=== PATIENT | male | born 1935 | race Caucasian/White ===

== ENCOUNTER 2017-01-03 20:42 | Observation (INO) | payer OTHER ==
[~2017-01-03] VITALS: Ht 175.3 cm; Wt 83.2 kg
--- NOTE | 2017-01-03 22:54 | DIAGNOSTIC IMAGING REPORT ---
PROCEDURE: CT ABD/PELVIS WITH CONTRAST INDICATION: Left lower quadrant abdominal pain. TECHNIQUE: 125 ml of Isovue 300 were injected intravenously and axial images were obtained of the entire abdomen and pelvis with sagittal and coronal reformations. COMPARISON: None. FINDINGS: ABDOMEN: There is mild increased fluid throughout the colon and distal small bowel. There is rotation of the mesentery in the left lower abdomen which might be a reflection of an internal hernia, although there is no evidence of bowel obstruction. There are internal septations of the gallbladder. Liver, spleen, pancreas, kidneys (bilateral simple cysts), are normal. There are marked calcified atheromatous changes aorta and iliac vessels. There are moderate to marked degenerate change of the lumbar spine. PELVIS: There is mild enlargement prostate (4.8 cm) with central dystrophic calcifications. IMPRESSION: 1. Mild increased fluid throughout the colon. Consider ingested material or enterocolitis. 2. Rotation of the small bowel mesentery in the left lower abdomen. While this may be normal, one might consider the possibility of internal hernia (although there is no evidence of obstruction). 3. There are septations in the neck of the gallbladder (versus gallstones). Ultrasound gallbladder is recommended to further evaluate (after the patient's acute illness). 4. Marked calcified atheromatous changes of the aorta and iliac vessels. No evidence of aneurysm. 5. Mild enlargement prostate. 6. Findings discussed with Dr. Polanco. All CT scans at this facility use dose modulation, iterative reconstruction, and/or weight-based dosing when appropriate to reduce radiation dose to as low as reasonably achievable.
--- NOTE | 2017-01-03 23:34 | ED CLINICAL REPORT ---
Clinical Report - Physicians/Mid Levels [facility] [address] [place] [address] 01/03/2017 20:44 Patient: MURIEL IVAN Time Seen: 21:01. Arrived- By private vehicle. Historian- patient and family. HISTORY OF PRESENT ILLNESS Chief Complaint: ABDOMINAL PAIN. At its maximum, severity described as moderate. When seen in the E.D., severity described as moderate. Modifying factors- worsened by movement. Relieved by rest. It is described as "pain". No radiation. It is described as located in the left lower quadrant and left pelvis. This started today about 02:00 AM and is still present. It was gradual in onset and has been waxing/waning. No vomiting. He has had diarrhea (had some loose stools - using stool softener and ?Mag citrate). Similar symptoms previously: Recent medical care: Not recently seen/assessed. REVIEW OF SYSTEMS The patient has had constipation (intermittently). No black stools, hematemesis, difficulty with urination, pain with urination or urinary frequency. No bloody stools, fever, headache, sore throat or difficulty breathing. No cough or back pain. Denies current . All systems otherwise negative, except as recorded above. PAST HISTORY See nurses notes. PROBLEMS: Bladder CA. Diabetes Mellitus. Renal Lithiasis. Coronary Artery Disease SURGERIES: Bladder. CABG. SOCIAL HISTORY No alcohol use or drug use. ADDITIONAL NOTES The nursing notes have been reviewed. PHYSICAL EXAM Vital Signs: 01/03/2017 21:01 BP: 165/77. HR: 64. RR: 16. O2 saturation: 97%. Temp: 97.7 F. Pain level now: 8/10. Appearance: Alert. Oriented X3. Patient in mild distress. Eyes: No scleral icterus or pale conjunctivae. ENT: Pharynx normal. No pharyngeal erythema or tonsillar exudate. The mucous membranes are not dry. Neck: Normal inspection. Neck supple. CVS: Normal heart rate and rhythm. Pulses normal. Respiratory: No respiratory distress. Breath sounds normal. Chest nontender. Abdomen: Soft. Moderate tenderness in the left lower quadrant. No rebound tenderness or guarding. Back: Normal inspection. Skin: Skin warm and dry. Normal skin color. Normal skin turgor. Extremities: Extremities exhibit normal ROM. Neuro: Oriented X 3. No motor deficit. LABS, X-RAYS, AND EKG Abdominal CT: IMPRESSION: 1. Mild increased fluid throughout the colon. Consider ingested material or enterocolitis. 2. Rotation of the small bowel mesentery in the left lower abdomen. While this may be normal, one might consider the possibility of internal hernia (although there is no evidence of obstruction). 3. There are septations in the neck of the gallbladder (versus gallstones). Ultrasound gallbladder is recommended to further evaluate (after the patient's acute illness). 4. Marked calcified atheromatous changes of the aorta and iliac vessels. No evidence of aneurysm. 5. Mild enlargement prostate. Study type: abdomen and pelvis. Abdominal CT performed with IV contrast. The study was independently viewed by me, interpreted by the radiologist and discussed with the radiologist. Laboratory Tests: UA-Culture if indicated: (MARIO: 01/03/2017 21:00) ( [facility] 01/03/2017 21:34) Final results Test Result Flag Units (Reference) URINE COLOR YELLOW URINE APPEARANCE CLEAR URINE GLUCOSE NEGATIVE (NEGATIVE) URINE BILIRUBIN NEGATIVE (NEGATIVE) URINE KETONE NEGATIVE (NEGATIVE) URINE SPECIFIC GRAVITY <= 1.005 L (1.010-1.030) URINE PH 7.0 (5.0-8.0) URINE PROTEIN NEGATIVE (NEGATIVE) URINE UROBILINOGEN 0.2 EU/dL (0.2-1.0) URINE NITRITE NEGATIVE (NEGATIVE) URINE BLOOD TRACE-INTACT (NEGATIVE) URINE LEUK ESTERASE TRACE (NEGATIVE) URINE RBC 0-1 rbc/hpf (0-1) URINE WBC 3-5 wbc/hpf (0-1) URINE EPITHELIAL CELLS NONE SEEN EPI/hpf (0-5) URINE BACTERIA NONE SEEN (NONE SEEN) URINE COMMENT CULTURE INDICATED URINE CULTURES ARE SET-UP BASED ON THE FOLLOWING CRITERIA:POSITIVE NITRITEPOSITIVE LEUKOCYTE ESTERASEGREATER THAN 10 WHITE BLOOD CELLSMODERATE (2+) OR GREATER BACTERIA CBC w Diff: (MARIO: 01/03/2017 21:30) ( [facility] [place] 21:45) Final results Test Result Flag Units (Reference) WHITE BLOOD COUNT 8.2 K/uL (4.5-11.5) RED BLOOD COUNT 4.60 M/uL (4.50-5.90) HEMOGLOBIN 13.4 L gm/dL (13.5-17.5) HEMATOCRIT 39.8 L % (41.0-53.0) MEAN CELL VOLUME 86 fL (80-100) MEAN CORPUSCULAR HGB 29 pg (26-34) MEAN CORPUSCULAR HGB CONC 34 g/dL (31-37) RED CELL DISTRIBUTION WIDTH 13.5 % (11.6-14.8) PLATELET COUNT 176 K/uL (150-400) NEUTROPHIL % 62.6 % (50-75) LYMPH % 19.9 L % (25-40) MONO % 11.6 % (3-14) EOSINOPHIL % 4.8 H % (0-4) BASOPHIL % 1.1 % (0-2) PT with INR: (MARIO: 01/03/2017 21:30) ( [facility] 01/03/2017 22:08) Final results Test Result Flag Units (Reference) INR 0.9 (0.8-1.2) Low Intensity Therapy: INR 1.5-2.0 PT range 18.5-23.1Mod.Intensity Therapy: INR 2.0-3.0 PT range 23.1-31.5High Intensity Therapy: INR 2.5-3.5 PT range 27.4-35.5High Intensity Therapy 2: INR 3.0-4.0 PT range 31.5-39.3 Lactate, Serum: (MARIO: 01/03/2017 21:40) ( [facility] 01/03/2017 22:21) Final results Test Result Flag Units (Reference) LACTIC ACID 0.8 mmol/L (0.4-2.0) CMP: (MARIO: 01/03/2017 21:30) ( [facility] 01/03/2017 22:02) Final results Test Result Flag Units (Reference) GLUCOSE 103 mg/dL (70-110) BUN 20 H mg/dL (7-18) CREATININE 1.2 mg/dL (0.6-1.3) Estimated GFR >60 mL/min Estimated GFR- >60 mL/min Note: Persistent reduction over 3 months in eGFR<60 mL/min/1.73 m2 defines CKD. Patients with eGFR values>=60 mL/min/1.73 m2 may also have CKD if evidence ofpersistent proteinuria. Additional information may be foundat www.kidney.org. SODIUM 135 L mmol/L (136-145) POTASSIUM 3.5 mmol/L (3.5-5.1) CHLORIDE 98 mmol/L (98-107) CARBON DIOXIDE 25 mmol/L (21-32) CALCIUM 8.4 L mg/dL (8.5-10.1) TOTAL PROTEIN 7.1 g/dL (6.4-8.2) ALBUMIN 3.9 g/dL (3.3-5.0) BILIRUBIN, TOTAL 0.8 mg/dL (0.0-1.0) ALKALINE PHOSPHATASE 76 U/L (46-116) AST (SGOT) 21 U/L (15-37) ALT (SGPT) 24 U/L (12-78) LIPASE 145 U/L (73-393) AMYLASE 44 U/L (25-115) . Pulse Oximetry: 01/03/2017 21:01 O2 saturation: 97%. (FIO2 - room air). Interpretation: normal. PROGRESS AND PROCEDURES Course of Care: Normal Saline 1 liter IVPB given. Bactrim DS 2 tabs PO. Zofran 4 mg IVP given. Dilaudid 0.5 mg IVP given. Flagyl 500mg IVPB given. Patient is stable. Physical exam findings are improved. Symptoms better. CT concerning for ?internal hernia. Pt will be observed and surgery consulted (Dr Mcgill requests hospitalist admit with surgery consult). Discussed case with on-call health care provider, (Artem call placed 23:00). Reviewed test results. Agreed upon treatment plan. Discussed case with health care provider (Paula call placed 23:24). Health care provider will see patient in ED. Patient/family counseled. Transition orders written. Disposition: Discharged. Condition: stable and improved. CLINICAL IMPRESSION Acute left lower quadrant abdominal pain of unknown cause (consider internal hernia). Acute urinary tract infection with cystitis. (Electronically signed by Michael Polanco DO 01/04/2017 7:23)
--- NOTE | 2017-01-03 23:34 | ED ORDER SUMMARY ---
..... Patient: MURIEL IVAN OrderSheet [facility] VisitID: [id number] [address] [place] [address] 81y, M Registration Date/Time: 01/03/2017 ORDER SHEET Weight: 83.9 kg (stated) Allergies: Some oral Antibiotic (?) GENERAL ORDERS: CT Abd/Pel w Cont (No) (N/A) (LLQ tenderness) Urgent (21:05 01/03/2017 PHutchinson DO) (Ack 21:13 SRedmond) (23:29 Luis Enrique) CBC w Diff Urgent (21:06 01/03/2017 PHutchinson DO) (Ack 21:13 SRedmond) (21:33 JRomanelli R.N.) CMP Urgent (21:01/03/2017 PHutchinson DO) (Ack 21:13 SRedmond) (21:33 JRomanelli R.N.) UA-Culture if indicated Urgent (21:06 01/03/2017 PHutchinson DO) (Ack 21:13 SRedmond) (21:20 JRomanelli R.N.) Amylase Urgent (21:06 01/03/2017 PHutchinson DO) (Ack 21:13 SRedmond) (21:33 JRomanelli R.N.) Lipase Urgent (21:06 01/03/2017 PHutchinson DO) (Ack 21:13 SRedmond) (21:33 JRomanelli R.N.) PT with INR Urgent (21:06 01/03/2017 PHutchinson DO) (Ack 21:13 SRedmond) (21:33 JRomanelli R.N.) Lactate, Serum Urgent (21:06 01/03/2017 PHvachinson DO) (Ack 21:13 SRedmond) (22:07 JRomanelli R.N.) Call (Place call to): (Dr Lora) (22:53 01/03/2017 [facility]) (Ack 22:55 SRedmond) (23:00 SRedmond) MEDICATION ORDERS: Bactrim DS PO (Tablet 800-160 mg) 2 tabs (NOW) (21:53 01/03/2017 PHutchinson DO) (22:08 Stephanie R.N.) IV FLUIDS: IV NS : initial bolus 500 mL (1000 mL/hr), then 250 mL/hr for X2 (NOW) (21:06 01/03/2017 [facility] ) (21:54 Stephanie R.N.) Dilaudid IV 0.5 mg (HIGH ALERT MEDICATION, NOW) (21:06 01/03/2017 [facility]) (22:10 Stephanie R.N.) Zofran IV 4 mg (NOW) (21:06 01/03/2017 [facility]) (22:08 Stephanie R.N.) Flagyl IV 500 mg/100mL (NOW) (21:53 01/03/2017 [facility]) (22:09 Stephanie R.N.) ORDER SHEET NOTES: [Electronically signed by Filiberto Orozco R.N. (02:58 01/04/2017)] [Electronically signed by Michael Polanco DO (07:23 01/04/2017)] [Electronically locked/signed by Filiberto Orozco R.N. (02:58 01/04/2017)]
--- NOTE | 2017-01-03 23:34 | ED CLINICAL REPORT ---
Clinical Report - Physicians/Mid Levels [facility] [address] [place] [address] 01/03/2017 20:44 Patient: MURIEL IVAN Time Seen: 21:01. Arrived- By private vehicle. Historian- patient and family. HISTORY OF PRESENT ILLNESS Chief Complaint: ABDOMINAL PAIN. At its maximum, severity described as moderate. When seen in the E.D., severity described as moderate. Modifying factors- worsened by movement. Relieved by rest. It is described as "pain". No radiation. It is described as located in the left lower quadrant and left pelvis. This started today about 02:00 AM and is still present. It was gradual in onset and has been waxing/waning. No vomiting. He has had diarrhea (had some loose stools - using stool softener and ?Mag citrate). Similar symptoms previously: Recent medical care: Not recently seen/assessed. REVIEW OF SYSTEMS The patient has had constipation (intermittently). No black stools, hematemesis, difficulty with urination, pain with urination or urinary frequency. No bloody stools, fever, headache, sore throat or difficulty breathing. No cough or back pain. Denies current . All systems otherwise negative, except as recorded above. PAST HISTORY See nurses notes. PROBLEMS: Bladder CA. Diabetes Mellitus. Renal Lithiasis. Coronary Artery Disease SURGERIES: Bladder. CABG. SOCIAL HISTORY No alcohol use or drug use. ADDITIONAL NOTES The nursing notes have been reviewed. PHYSICAL EXAM Vital Signs: 01/03/2017 21:01 BP: 165/77. HR: 64. RR: 16. O2 saturation: 97%. Temp: 97.7 F. Pain level now: 8/10. Appearance: Alert. Oriented X3. Patient in mild distress. Eyes: No scleral icterus or pale conjunctivae. ENT: Pharynx normal. No pharyngeal erythema or tonsillar exudate. The mucous membranes are not dry. Neck: Normal inspection. Neck supple. CVS: Normal heart rate and rhythm. Pulses normal. Respiratory: No respiratory distress. Breath sounds normal. Chest nontender. Abdomen: Soft. Moderate tenderness in the left lower quadrant. No rebound tenderness or guarding. Back: Normal inspection. Skin: Skin warm and dry. Normal skin color. Normal skin turgor. Extremities: Extremities exhibit normal ROM. Neuro: Oriented X 3. No motor deficit. LABS, X-RAYS, AND EKG Abdominal CT: IMPRESSION: 1. Mild increased fluid throughout the colon. Consider ingested material or enterocolitis. 2. Rotation of the small bowel mesentery in the left lower abdomen. While this may be normal, one might consider the possibility of internal hernia (although there is no evidence of obstruction). 3. There are septations in the neck of the gallbladder (versus gallstones). Ultrasound gallbladder is recommended to further evaluate (after the patient's acute illness). 4. Marked calcified atheromatous changes of the aorta and iliac vessels. No evidence of aneurysm. 5. Mild enlargement prostate. Study type: abdomen and pelvis. Abdominal CT performed with IV contrast. The study was independently viewed by me, interpreted by the radiologist and discussed with the radiologist. Laboratory Tests: UA-Culture if indicated: (MARIO: 01/03/2017 21:00) ( [facility] [place] 21:34) Final results Test Result Flag Units (Reference) URINE COLOR YELLOW URINE APPEARANCE CLEAR URINE GLUCOSE NEGATIVE (NEGATIVE) URINE BILIRUBIN NEGATIVE (NEGATIVE) URINE KETONE NEGATIVE (NEGATIVE) URINE SPECIFIC GRAVITY <= 1.005 L (1.010-1.030) URINE PH 7.0 (5.0-8.0) URINE PROTEIN NEGATIVE (NEGATIVE) URINE UROBILINOGEN 0.2 EU/dL (0.2-1.0) URINE NITRITE NEGATIVE (NEGATIVE) URINE BLOOD TRACE-INTACT (NEGATIVE) URINE LEUK ESTERASE TRACE (NEGATIVE) URINE RBC 0-1 rbc/hpf (0-1) URINE WBC 3-5 wbc/hpf (0-1) URINE EPITHELIAL CELLS NONE SEEN EPI/hpf (0-5) URINE BACTERIA NONE SEEN (NONE SEEN) URINE COMMENT CULTURE INDICATED URINE CULTURES ARE SET-UP BASED ON THE FOLLOWING CRITERIA:POSITIVE NITRITEPOSITIVE LEUKOCYTE ESTERASEGREATER THAN 10 WHITE BLOOD CELLSMODERATE (2+) OR GREATER BACTERIA CBC w Diff: (MARIO: 01/03/2017 21:30) ( [facility] [place] 21:45) Final results Test Result Flag Units (Reference) WHITE BLOOD COUNT 8.2 K/uL (4.5-11.5) RED BLOOD COUNT 4.60 M/uL (4.50-5.90) HEMOGLOBIN 13.4 L gm/dL (13.5-17.5) HEMATOCRIT 39.8 L % (41.0-53.0) MEAN CELL VOLUME 86 fL (80-100) MEAN CORPUSCULAR HGB 29 pg (26-34) MEAN CORPUSCULAR HGB CONC 34 g/dL (31-37) RED CELL DISTRIBUTION WIDTH 13.5 % (11.6-14.8) PLATELET COUNT 176 K/uL (150-400) NEUTROPHIL % 62.6 % (50-75) LYMPH % 19.9 L % (25-40) MONO % 11.6 % (3-14) EOSINOPHIL % 4.8 H % (0-4) BASOPHIL % 1.1 % (0-2) PT with INR: (MARIO: 01/03/2017 21:30) ( [facility] 01/03/2017 22:08) Final results Test Result Flag Units (Reference) INR 0.9 (0.8-1.2) Low Intensity Therapy: INR 1.5-2.0 PT range 18.5-23.1Mod.Intensity Therapy: INR 2.0-3.0 PT range 23.1-31.5High Intensity Therapy: INR 2.5-3.5 PT range 27.4-35.5High Intensity Therapy 2: INR 3.0-4.0 PT range 31.5-39.3 Lactate, Serum: (MARIO: 01/03/2017 21:40) ( [facility] 01/03/2017 22:21) Final results Test Result Flag Units (Reference) LACTIC ACID 0.8 mmol/L (0.4-2.0) CMP: (MARIO: 01/03/2017 21:30) ( [facility] 01/03/2017 22:02) Final results Test Result Flag Units (Reference) GLUCOSE 103 mg/dL (70-110) BUN 20 H mg/dL (7-18) CREATININE 1.2 mg/dL (0.6-1.3) Estimated GFR >60 mL/min Estimated GFR- >60 mL/min Note: Persistent reduction over 3 months in eGFR<60 mL/min/1.73 m2 defines CKD. Patients with eGFR values>=60 mL/min/1.73 m2 may also have CKD if evidence ofpersistent proteinuria. Additional information may be foundat www.kidney.org. SODIUM 135 L mmol/L (136-145) POTASSIUM 3.5 mmol/L (3.5-5.1) CHLORIDE 98 mmol/L (98-107) CARBON DIOXIDE 25 mmol/L (21-32) CALCIUM 8.4 L mg/dL (8.5-10.1) TOTAL PROTEIN 7.1 g/dL (6.4-8.2) ALBUMIN 3.9 g/dL (3.3-5.0) BILIRUBIN, TOTAL 0.8 mg/dL (0.0-1.0) ALKALINE PHOSPHATASE 76 U/L (46-116) AST (SGOT) 21 U/L (15-37) ALT (SGPT) 24 U/L (12-78) LIPASE 145 U/L (73-393) AMYLASE 44 U/L (25-115) . Pulse Oximetry: 01/03/2017 21:01 O2 saturation: 97%. (FIO2 - room air). Interpretation: normal. PROGRESS AND PROCEDURES Course of Care: Normal Saline 1 liter IVPB given. Bactrim DS 2 tabs PO. Zofran 4 mg IVP given. Dilaudid 0.5 mg IVP given. Flagyl 500mg IVPB given. Patient is stable. Physical exam findings are improved. Symptoms better. CT concerning for ?internal hernia. Pt will be observed and surgery consulted (Dr Mcgill requests hospitalist admit with surgery consult). Discussed case with on-call health care provider, (Artem call placed 23:00). Reviewed test results. Agreed upon treatment plan. Discussed case with health care provider (Paula call placed 23:24). Health care provider will see patient in ED. Patient/family counseled. Transition orders written. Disposition: Discharged. Condition: stable and improved. CLINICAL IMPRESSION Acute left lower quadrant abdominal pain of unknown cause (consider internal hernia). Acute urinary tract infection with cystitis. (Electronically signed by Michael Polanco DO 01/04/2017 7:23)
--- NOTE | 2017-01-03 23:34 | ED ORDER SUMMARY ---
..... Patient: MURIEL IVAN OrderSheet [facility] VisitID: [id number] [address] [place] [address] 81y, M Registration Date/Time: 01/03/2017 ORDER SHEET Weight: 83.9 kg (stated) Allergies: Some oral Antibiotic (?) GENERAL ORDERS: CT Abd/Pel w Cont (No) (N/A) (LLQ tenderness) Urgent (21:05 01/03/2017 PHutchinson DO) (Ack 21:13 SRedmond) (23:29 Luis Enrique) CBC w Diff Urgent (21:06 01/03/2017 PHutchinson DO) (Ack 21:13 SRedmond) (21:33 JRomanelli R.N.) CMP Urgent (21:01/03/2017 PHutchinson DO) (Ack 21:13 SRedmond) (21:33 JRomanelli R.N.) UA-Culture if indicated Urgent (21:06 01/03/2017 PHutchinson DO) (Ack 21:13 SRedmond) (21:20 JRomanelli R.N.) Amylase Urgent (21:06 01/03/2017 PHutchinson DO) (Ack 21:13 SRedmond) (21:33 JRomanelli R.N.) Lipase Urgent (21:06 01/03/2017 PHutchinson DO) (Ack 21:13 SRedmond) (21:33 JRomanelli R.N.) PT with INR Urgent (21:06 01/03/2017 PHutchinson DO) (Ack 21:13 SRedmond) (21:33 JRomanelli R.N.) Lactate, Serum Urgent (21:06 01/03/2017 PHorchinson DO) (Ack 21:13 SRedmond) (22:07 JRomanelli R.N.) Call (Place call to): (Dr Lora) (22:53 [facility] (Ack 22:55 SRedmond) (23:00 SRedmond) MEDICATION ORDERS: Bactrim DS PO (Tablet 800-160 mg) 2 tabs (NOW) (21:53 01/03/2017 PHutchinson DO) (22:08 Stephanie R.N.) IV FLUIDS: IV NS : initial bolus 500 mL (1000 mL/hr), then 250 mL/hr for X2 (NOW) (21:06 [facility]/03/2017 [facility] ) (21:54 Stephanie R.N.) Dilaudid IV 0.5 mg (HIGH ALERT MEDICATION, NOW) (21:06 01/03/2017 [facility]) (22:10 Stephanie R.N.) Zofran IV 4 mg (NOW) (21:06 01/03/2017 [facility]) (22:08 Stephanie R.N.) Flagyl IV 500 mg/100mL (NOW) (21:53 01/03/2017 [facility]) (22:09 Stephanie R.N.) ORDER SHEET NOTES: [Electronically signed by Filiberto Orozco R.N. (02:58 01/04/2017)] [Electronically signed by Michael Polanco DO (07:23 01/04/2017)] [Electronically locked/signed by Filiberto Orozco R.N. (02:58 01/04/2017)]
--- NOTE | 2017-01-03 23:34 | ED NURSING NOTES ---
Clinical Report - Nurses [facility] [place] [address] 01/03/2017 20:44 Patient: MURIEL IVAN TRIAGE Triage time 21:00 Jan 03 2017. Chief Complaint: ABDOMINAL PAIN. Alert. LIZET COMA SCORE: Weed Coma Scale: 15- eyes open spontaneously (4); best verbal response- oriented x 4 (5); best motor response- obeys commands (6). --21:16 Filiberto Orozco R.N. 21:01 01/03/17. BP: 165/77. HR: 64. RR: 16. O2 saturation: 97%. Temp: 97.7 F. Pain level now: 05/23. --21:16 Filiberto Orozco R.N. Weight: 83.9 kg stated. Height/Length: 69 inches Per Patient. BMI: 27.3. --21:09 Filiberto Orozco R.N. Medications MetFORMIN HCl Oral. Simvastatin Oral. --21:09 Filiberto Orozco R.N. Medication/allergy information source: the patient. --21:16 Filiberto Orozco R.N. Allergies Some oral Antibiotic (?). Probable Moderate(itching, rash) --02:57 Filiberto Orozco R.N. History Arrived by private vehicle. Historian: patient. Accompanied by family. Primary physician (Yobany). ( Abdominal Pain located in the lower quads. Pain started this morning about 12 hours ago.). The patient has had abdominal pain. This did not begin last night. 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 SOCIAL HX: Smoker- current status unknown. No alcohol use or drug use. No recent travel. No infectious disease exposure. ABUSE ASSESSMENT: No report of abuse. FALL RISK ASSESSMENT: Fall risk assessment completed. No fall risk identified. NUTRITIONAL RISK ASSESSMENT: The nutritional risk assessment revealed no deficiencies. FUNCTIONAL ASSESSMENT: Functional assessment: no impairments noted. LEARNING NEEDS ASSESSMENT: The learning needs assessment revealed no barriers. SKIN INTEGRITY ASSESSMENT: Skin integrity risk assessment completed. No skin integrity risk identified. --21:16 Filiberto Orozco R.N. PROBLEMS: Bladder CA. Diabetes Mellitus. Renal Lithiasis. Coronary Artery Disease. --21:15 Filiberto Orozco R.N. ADDITIONAL SURGERIES: Bladder. CABG. --21:15 Filiberto Orozco R.N. Interventions ID band on patient. To treatment room. --21:16 Filiberto Orozco R.N. PHYSICAL ASSESSMENT To room via wheelchair. GENERAL / NEURO / PSYCH: Alert. Oriented X 4. HEENT: Mucous membranes are pink. RESPIRATORY: Respirations not labored. CVS: Cardiac rhythm: (RRR). GI / : Abdominal tenderness in the left lower quadrant and lower abdomen. Bowel sounds within normal limits. SKIN: Skin is warm and dry. --21:16 Filiberto Orozco R.N. NURSING PROGRESS NOTES Patient gowned. Reassurance given to the patient and patient's family. Patient identifiers checked. Call light placed in reach. Side rails up x 1. Bed placed in lowest position. Brakes of bed on. Patient ready for evaluation- chart flagged and ED physician notified. --21:16 Filiberto Orozco R.N. 21:15 01/03/2017 Started bag #1 1000 mL IV Fluids IV NS (Saline); bolus of 500 mL over 30 minute(s) then at 250 mL/hr over 120 minute(s) via site #1 via IV pump. Allergies verified and confirmed 5 rights. IV patency established. IV site checked: no pain, redness, or swelling. IV flushed thoroughly pre- and post-medication administration. --21:54 Filiberto Orozco R.N. 21:24 01/03/2017 Site #1 started via IV in the left antecubital space with an 20g angiocath, with aseptic technique and good blood return; two attempts. Blood drawn: rainbow set. Labeled in the presence of the patient and sent to the lab. Saline lock flushed with 10 mL saline. --21:35 Filiberto Orozco R.N. 21:45 01/03/2017 IV Fluids IV NS via IV site #1 Rate Changed: bag #1 decreased to 250 mL/hr via IV pump. IV patency established. IV site checked: no pain, redness, or swelling. IV flushed thoroughly. Confirmed 5 Rights. --02:41 Filiberto Orozoc R.N. 21:53 01/03/2017 Zofran (Ondansetron HCl) IVP 4 mg given. via site #1. Allergies verified and confirmed 5 rights. IV patency established. IV site checked: no pain, redness, or swelling. IV flushed thoroughly pre- and post-medication administration. IVP given by RN. --22:08 Filiberto Orozco R.N. 21:58 01/03/2017 Bactrim DS (Sulfamethoxazole-TMP DS) PO Tablets 2 tab given. Allergies verified and confirmed 5 rights. --22:08 Filiberto Orozco R.N. 22:04 01/03/2017 Started 500 mg of Flagyl (MetroNIDAZOLE in NaCl) IVPB in bag #1 100 mL; at 100 mL/hr over 60 minute(s) via site #1 --22:09 Filiberto Orozco R.N. 22:05 01/03/2017 Dilaudid (HYDROmorphone HCl PF) IVP 0.5 mg given over 2 minute(s) via site #1. Allergies verified, confirmed 5 rights and sedative warning given. IV patency established. IV site checked: no pain, redness, or swelling. IV flushed thoroughly pre- and post-medication administration. IVP given by RN. --22:10 Filiberto Orozco R.N. 23:05 01/03/2017 Flagyl IVPB Discontinued: infused. Total amount infused: 100 mL. IV patency established. IV site checked: no pain, redness, or swelling. IV flushed thoroughly. --02:45 Filiberto Orozco R.N. 23:45 01/03/2017 IV Fluids IV NS Discontinued: bag #1 infused. Total amount infused: 1000 mL. IV patency established. IV site checked: no pain, redness, or swelling. IV flushed thoroughly. --02:43 Filiberto Orozco R.N. 02:30 01/04/2017 Site #[address] upon admission; patent, no pain and no signs of infection or infiltration. Good blood return present; flushes easily. --02:44 Filiberto Orozco R.N. 22:00 01/03/17. BP: 146/61. HR: 64. RR: 16. O2 saturation: 95% on room air. --02:49 Filiberto Orozco R.N. 23:00. Patient transported to CT by stretcher with tech. --02:52 Filiberto Orozco R.N. 23:20. Patient returned from CT by stretcher with tech. --02:52 Filiberto Orozco R.N. 00:00 01/04/17. BP: 128/62. HR: 66. RR: 16. O2 saturation: 95%. --02:54 Filiberto Orozco R.N. 01:00 01/04/17. HR: 65. RR: 16. O2 saturation: 96% on room air. --02:56 Filiberto Orozco R.N. DISPOSITION / DISCHARGE 02:26 01/04/17. BP: 105/58. HR: 64. RR: 16. O2 saturation: 95% on room air. Temp: 98.2 F (oral). Pain level now: 10/23. --02:27 Filiberto Orozco R.N. Departure time: 0230. --02:38 Filiberto Orozco R.N. 02:30. Disposition: observation. Transported via stretcher. Report was given to a nurse via a phone call. Report included patient's care, treatment, medications, reviewed medication reconcilliation, and condition (including any recent changes or anticipated changes). All questions were answered. Report was acknowledged and care was transferred. Patient's personal items; items were placed in belongings bag and transported with the patient. --02:39 Filiberto Orozco R.N. Locked/Released at 01/04/2017 2:58 by Filiberto Orozco R.N.
[2017-01-04 02:44] VITALS: BP 123/59
[2017-01-04] MEDS ORDERED: KETOCONAZOLE2 % TOP (02:56)
[2017-01-04] MEDS ORDERED: TERAZOSIN HCL1 MG PO (02:57)
[2017-01-04] MEDS ORDERED: MAXZIDE-25 PO (02:58)
[2017-01-04] MEDS ORDERED: METOPROLOL TART25 MG PO (02:59)
[2017-01-04] MEDS ORDERED: METFORMIN HCL500 MG PO (03:00)
[2017-01-04] MEDS ORDERED: ZESTRIL10 MG PO (03:00)
--- NOTE | 2017-01-04 06:28 | NUR ---
Pt arrived to unit at 0300, oriented to room. Daughter stayed at bedside. VSS and no complaints of pain. Abdomen slightly distended, tenderness in LLQ when pressed. Up to bathroom with standby assist and IV pole for support. Pt uses cane at home. Woke up confused and disoriented several times during the night when he had to go to the bathroom, reoriented easily. Bed alarm on.
--- NOTE | 2017-01-04 06:54 | HISTORY AND PHYSICAL ---
ADMITTED: 01/03/2017 CHIEF COMPLAINT: 1. Left lower quadrant pain HISTORY OF PRESENT ILLNESS: This is a 81-year-old male presenting to the emergency department with about 12 hours left lower quadrant pain. He also states he has nausea, but no vomiting. He states it has been several days since he had a bowel movement and he is oftentimes constipated. He does take laxatives and other medications to try and help him have regular bowel movements. MEDICAL/SURGICAL HISTORY: CABG x3, bladder cancer, type 2 diabetes. He has had a skin excision from his forehead due to skin cancer, tonsillectomy and adenoidectomy, dyslipidemia, hypertension, hernia surgery. MEDICATIONS: 1. Unknown. We are trying to obtain the medication list from pharmacy. ALLERGIES: 1. THE PATIENT HAS AN ALLERGY TO AN UNKNOWN ANTIBIOTIC. SOCIAL HISTORY: The patient lives with his cat. He denies any smoking, currently ; however, did smoke for approximately 37 years at a rate of 1 pack per day. Tobacco: He has a history of chewing tobacco but is no longer chewing. Denies any drug or alcohol use. FAMILY HISTORY: Father with a stroke CABG, prostate cancer and colon cancer. Father and mother with diabetes. Mother also with Alzheimer's and cholecystectomy. Paternal aunt with breast cancer and diverticulosis. REVIEW OF SYSTEMS: A full 12-point review of systems was done and was negative except in HPI and the fact that he is hard of hearing. PHYSICAL EXAMINATION: VITAL SIGNS: Blood pressure is 123/59, pulse is 68, respiratory rate is 18, O2 saturation 96% on room air, T-max 36.4 degrees Celsius. GENERAL: This is a well-appearing male, sitting in bed, in no apparent distress. HEENT: Head is atraumatic, normocephalic. Pupils are equal, round, and reactive to light with accommodation bilaterally. Extraocular muscles are intact bilaterally. Tympanic membranes are nonerythematous without exudates with cones of light bilaterally. Oropharynx is nonerythematous without exudates. NECK: Trachea is midline. There is no JVD. HEART: S1, S2, regular rate and rhythm. No S3, S4, murmurs, gallops, or rubs. LUNGS: Clear to auscultation bilaterally. ABDOMEN: Soft, nondistended, with tenderness and guarding in the left lower quadrant, but without peritoneal signs. There is no peripheral edema. LAB/IMAGING: Sodium 135, potassium 3.5, chloride 98, bicarbonate 25, BUN of 20, creatinine 1.2, glucose of 103, alkaline phosphatase is 76, AST of 21, ALT of 24. Lipase 145, amylase 44. Lactic acid 0.8, calcium 8.4, total protein is 7.1, albumin 2.9 , total bilirubin 0.8. INR 0.4. White blood cell count 8.2, hemoglobin 13.4, hematocrit 39.8, platelets of 176. UA shows trace leukocyte esterase. CT scan shows increased fluid intestines with possible rotation of small bowel mesentery in the left lower quadrant. The patient also has an enlarged prostate and atherosclerosis. IMPRESSION: 1. This is a 81-year-old male with left lower quadrant pain with possible rotation of the small bowel mesentery in the left lower quadrant on CT scan. PLAN: 1. The patient will be monitored closely overnight and kept n.p.o. Surgery has been consulted and they will be called immediately for any signs of worsening. I have nursing to try and obtain medication list. Medications will need to be restarted as soon as we have an accurate list. 2. Prophylaxis, gastrointestinal ulcer prophylaxis with famotidine The patient will have sequential compression devices prophylaxis for deep venous thrombosis prophylaxis. CODE STATUS: DO NOT RESUSCITATE. THIS WAS DISCUSSED EXTENSIVELY WITH THE FAMILY.
--- NOTE | 2017-01-04 07:23 | ED MAR SUMMARY ---
..... Medication Administration Record [facility] [address] [place] [address] Patient: MURIEL IVAN Visit ID: [id number] 81y, M Weight: 83.9 kg Height/Length: 69 in BMI: 27.3 ALLERGIES: Some oral Antibiotic (?) Start 21:15 01/03/2017 Filiberto Orozco R.N., Stop 23:45 01/03/2017 Filiberto Orozco R.N. Medication Administered: IV NS (SALINE), Dose: IV Fluids over 120 minute(s), Rate: 250 mL/hr, Bolus: 500 mL over 30 minute(s), Dispensed: 1000 mL bag, Site: #1. Medication Ordered: IV NS : initial bolus 500 mL (1000 mL/hr), then 250 mL/hr for X2 (NOW). Given 21:53 01/03/2017 Filiberto Orozco R.N. Medication Administered: ZOFRAN [IVP] (ONDANSETRON HCL), Dose: 4 mg IVP, Site: #1 left AC. Medication Ordered: Zofran IV 4 mg (NOW). Given 21:58 01/03/2017 Filiberto Orozco R.N. Medication Administered: BACTRIM DS [PO] (SULFAMETHOXAZOLE-TMP DS), Dose: 2 tab Tablets PO. Medication Ordered: Bactrim DS PO (Tablet 800-160 mg) 2 tabs (NOW). Start 22:04 01/03/2017 Filiberto Orozco R.N., Stop 23:05 01/03/2017 Filiberto Orozco R.N. Medication Administered: FLAGYL [IVPB] (METRONIDAZOLE IN NACL), Dose: 500 mg IVPB over 60 minute(s), Rate: 100 mL/hr, Dispensed: 100 mL bag, Site: #1 left AC. Medication Ordered: Flagyl IV 500 mg/100mL (NOW). Given 22:05 01/03/2017 Filiberto Orozco R.N. Medication Administered: DILAUDID [IVP] (HYDROMORPHONE HCL PF), Dose: 0.5 mg IVP over 2 minute(s), Site: #1 left AC. Medication Ordered: Dilaudid IV 0.5 mg (HIGH ALERT MEDICATION, NOW).
--- NOTE | 2017-01-04 07:23 | ED MAR SUMMARY ---
..... Medication Administration Record [facility] [address] [place] [address] Patient: MURIEL IVAN Visit ID: [id number] 81y, M Weight: 83.9 kg Height/Length: 69 in BMI: 27.3 ALLERGIES: Some oral Antibiotic (?) Start 21:15 01/03/2017 Filiberto Orozco R.N., Stop 23:45 01/03/2017 Filiberto Orozco R.N. Medication Administered: IV NS (SALINE), Dose: IV Fluids over 120 minute(s), Rate: 250 mL/hr, Bolus: 500 mL over 30 minute(s), Dispensed: 1000 mL bag, Site: #1. Medication Ordered: IV NS : initial bolus 500 mL (1000 mL/hr), then 250 mL/hr for X2 (NOW). Given 21:53 01/03/2017 Filiberto Orozco R.N. Medication Administered: ZOFRAN [IVP] (ONDANSETRON HCL), Dose: 4 mg IVP, Site: #1 left AC. Medication Ordered: Zofran IV 4 mg (NOW). Given 21:58 01/03/2017 Filiberto Orozco R.N. Medication Administered: BACTRIM DS [PO] (SULFAMETHOXAZOLE-TMP DS), Dose: 2 tab Tablets PO. Medication Ordered: Bactrim DS PO (Tablet 800-160 mg) 2 tabs (NOW). Start 22:04 01/03/2017 Filiberto Orozco R.N., Stop 23:05 01/03/2017 Filiberto Orozco R.N. Medication Administered: FLAGYL [IVPB] (METRONIDAZOLE IN NACL), Dose: 500 mg IVPB over 60 minute(s), Rate: 100 mL/hr, Dispensed: 100 mL bag, Site: #1 left AC. Medication Ordered: Flagyl IV 500 mg/100mL (NOW). Given 22:05 01/03/2017 Filiberto Orozco R.N. Medication Administered: DILAUDID [IVP] (HYDROMORPHONE HCL PF), Dose: 0.5 mg IVP over 2 minute(s), Site: #1 left AC. Medication Ordered: Dilaudid IV 0.5 mg (HIGH ALERT MEDICATION, NOW).
--- NOTE | 2017-01-04 07:23 | ED MED RECONCILIATION SUMMARY ---
Patient: MURIEL IVAN Medication Reconciliation Report [facility] VisitID: [id number] [address] [place] [address] 81y, M Registration Date/Time: 01/03/2017 Weight: 83.9 kg Height/Length: 69 in. BMI: 27.3 ALLERGIES: Some oral Antibiotic (?) The patient's Home Medications are listed below: THE FOLLOWING MEDICATIONS NEED TO BE RECONCILED: MetFORMIN HCl Oral Simvastatin Oral The source(s) of the original Home Medication information: patient The following Medications were given to the patient in the Emergency Department: IV NS IV Fluids bolus 500 mL over 30 minute(s), then 250 mL/hr, administered: 01/03/2017 9:15:00 PM Bactrim DS [PO] PO 2 tab, administered: 01/03/2017 9:58:00 PM Zofran [IVP] IVP 4 mg, administered: 01/03/2017 9:53:00 PM Flagyl [IVPB] IVPB bolus 0, then 500 mg 100 mL/hr, administered: 01/03/2017 10:04:00 PM Dilaudid [IVP] IVP 0.5 mg, administered: 01/03/2017 10:05:00 PM The following Medications were prescribed to the patient: None.
--- NOTE | 2017-01-04 07:23 | ED DISCHARGE INSTRUCTIONS ---
Patient: MURIEL IVAN General Instructions [facility] VisitID: [id number] [address] [place] [address] 81y, M Registration Date/Time: 01/03/2017 Acute left lower quadrant abdominal pain of unknown cause (consider internal hernia). Acute urinary tract infection with cystitis. ADDITIONAL INFORMATION Bladder Infection,Male (Adult) A bladder infection ("cystitis" or "UTI") usually causes a constant urge to urinate, and a burning when passing urine. Urine may be cloudy, smelly or dark. There may be also be pain in the lower abdomen. Cystitis in males is not common. It may be caused by a partial blockage in the urinary system that keeps the bladder from emptying completely. This is most often related to an enlarged prostate gland. Home Care: Drink lots of fluids (at least 6-8 glasses a day). This will flush the bacteria out of your bladder. Avoid sexual intercourse until your symptoms are gone. Avoid caffeine, alcohol, and spicy foods. They could irritate the bladder. A bladder infection is treated with antibiotics. You may also be given Pyridium (generic - phenazopyridine) to reduce burning with urination. This will cause urine to become a bright orange color, which can stain clothing. Follow Up with your doctor or this facility if ALL symptoms have not cleared within five days. It is important to keep your follow up appointment to discuss with your doctor the need for further tests of the urinary tract. Get Prompt Medical Attention if any of the following occur: Fever of 100.4F (38C) or higher, or as directed by your healthcare provider No improvement by the third day of treatment Increasing back or abdominal pain Repeated vomiting; unable to keep medicine down Weakness, dizziness or fainting You have been given the following additional information: Bladder Infection, Male (Adult) (Electronically signed by Michael Polanco DO 01/04/2017 7:23)
--- NOTE | 2017-01-04 07:23 | ED MED RECONCILIATION SUMMARY ---
Patient: MURIEL IVAN Medication Reconciliation Report [facility] VisitID: [id number] [address] [place] [address] 81y, M Registration Date/Time: 01/03/2017 Weight: 83.9 kg Height/Length: 69 in. BMI: 27.3 ALLERGIES: Some oral Antibiotic (?) The patient's Home Medications are listed below: THE FOLLOWING MEDICATIONS NEED TO BE RECONCILED: MetFORMIN HCl Oral Simvastatin Oral The source(s) of the original Home Medication information: patient The following Medications were given to the patient in the Emergency Department: IV NS IV Fluids bolus 500 mL over 30 minute(s), then 250 mL/hr, administered: 01/03/2017 9:15:00 PM Bactrim DS [PO] PO 2 tab, administered: 01/03/2017 9:58:00 PM Zofran [IVP] IVP 4 mg, administered: 01/03/2017 9:53:00 PM Flagyl [IVPB] IVPB bolus 0, then 500 mg 100 mL/hr, administered: 01/03/2017 10:04:00 PM Dilaudid [IVP] IVP 0.5 mg, administered: 01/03/2017 10:05:00 PM The following Medications were prescribed to the patient: None.
--- NOTE | 2017-01-04 07:23 | ED DISCHARGE INSTRUCTIONS ---
Patient: MURIEL IVAN General Instructions [facility] VisitID: [id number] [address] [place] [address] 81y, M Registration Date/Time: 01/03/2017 Acute left lower quadrant abdominal pain of unknown cause (consider internal hernia). Acute urinary tract infection with cystitis. ADDITIONAL INFORMATION Bladder Infection,Male (Adult) A bladder infection ("cystitis" or "UTI") usually causes a constant urge to urinate, and a burning when passing urine. Urine may be cloudy, smelly or dark. There may be also be pain in the lower abdomen. Cystitis in males is not common. It may be caused by a partial blockage in the urinary system that keeps the bladder from emptying completely. This is most often related to an enlarged prostate gland. Home Care: Drink lots of fluids (at least 6-8 glasses a day). This will flush the bacteria out of your bladder. Avoid sexual intercourse until your symptoms are gone. Avoid caffeine, alcohol, and spicy foods. They could irritate the bladder. A bladder infection is treated with antibiotics. You may also be given Pyridium (generic - phenazopyridine) to reduce burning with urination. This will cause urine to become a bright orange color, which can stain clothing. Follow Up with your doctor or this facility if ALL symptoms have not cleared within five days. It is important to keep your follow up appointment to discuss with your doctor the need for further tests of the urinary tract. Get Prompt Medical Attention if any of the following occur: Fever of 100.4F (38C) or higher, or as directed by your healthcare provider No improvement by the third day of treatment Increasing back or abdominal pain Repeated vomiting; unable to keep medicine down Weakness, dizziness or fainting You have been given the following additional information: Bladder Infection, Male (Adult) (Electronically signed by Michael Polanco DO 01/04/2017 7:23)
[2017-01-04 07:31] VITALS: BP 130/68
--- NOTE | 2017-01-04 08:11 | DIAGNOSTIC IMAGING REPORT ---
PROCEDURE: XR ABDOMEN 1 VIEW UPRIGHT INDICATION: partial vs complete sbo vs ileus TECHNIQUE: Single view upright abdomen. COMPARISON: CT 01/03/2017 FINDINGS: No free intraperitoneal air. Nonspecific, nonobstructive bowel gas pattern. A few fluid levels in nondistended right upper quadrant bowel. No suspicious mass, mass effect, or calcifications. The visible osseous structures demonstrate moderately severe degenerative endplate and disc changes throughout the visible spine. IMPRESSION: 1. A few fluid levels in nondistended right upper quadrant bowel most suggestive of enterocolitis or ileus. Otherwise nonobstructive bowel gas pattern. 2. Findings called to the floor.
--- NOTE | 2017-01-04 08:55 | NUR ---
PT AT THIS TIME DENIES PAIN OR NAUSEA, EVEN WITH PALPATION OF ABDOMIN. VSS. IN TO SEE PT. WILL CONTINUE TO MONITOR.
--- NOTE | 2017-01-04 09:12 | Progress Note ---
Subjective General Note Date: January 04, 2017 Admission Date: January 03, 2017 Hospital Day: 2 PCP: Kosta Haywood M.D. Status: Observation Advanced Directive: No Code Room: 205 Brief History: The patient is a 81-year-old white male with a significant past medical history of coronary artery disease status post CABG 3, bladder CA, diabetes mellitus type 2, hypertension, hyperlipidemia, who presented to [facility] emergency department on the day of admission secondary to complaints of left lower quadrant pain. 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 Secondary to the above, the patient was admitted by Michael Lora M.D. with consultation by the hospitalist service ( Lia Mitchell M.D.) for further evaluation and treatment For other history present illness, past medical history, family history, social history, review of systems, and admission physical examination please see the patient's history and physical examination by Dr. Michael Lora, hospitalist consultation by Lia Mitchell M.D. and ER visit note in the patient's medical record. Subjective: The patient states she is doing well today. His abdominal pain has completely resolved. He denies any history of nausea or vomiting. States he feels ready for discharge. Patient requests: None Medications and Allergies Medications Current Medications Sig/Jesenia Start time Last Medication Dose Route Stop Time Status Admin Sodium Chloride/ 1,000 ML ASDIRECTED 01/04 0145 AC 01/04 Electrolytes IV 0305 Famotidine 20 MG Q12HR 01/04 0132 AC 01/04 PO 0406 Morphine Sulfate 1 MG Q30MIN PRN 01/04 0130 AC IV Ondansetron HCl 4 MG Q6H PRN 01/04 0130 AC PO Allergies Coded Allergies: NKA (01/04/17) Physical Exam Vital Signs / I&Os Vital Signs Date Time Temp Pulse Resp B/P Pulse O2 O2 Flow FiO2 Ox Delivery Rate 01/04 0731 130/68 01/04 0724 97.7 111 20 96 Room Air 01/04 0334 Room Air 01/04 0244 97.5 68 18 123/59 96 Room Air General Appearance Alert, Cooperative, No acute distress, confused Lungs Clear to auscultation, Normal air movement Cardiovascular Regular rate and rhythm, Normal S1 and S2, No murmurs, gallops, rubs Abdomen Normal bowel sounds, Soft, No tenderness, No guarding, No rebound Extremities No cyanosis, No clubbing Neurological Cranial nerves intact, No lateralizing signs Psych/Mental Status Mood normal, Confused LAB Results Laboratory Tests 01/04 01/04 01/03 01/03 0525 0572 2143 2130 Chemistry Plasma Sodium (136 - 145 mmol/L) 139 135 Plasma Potassium (3.5 - 5.1 mmol/L) 3.9 3.5 Plasma Chloride (98 - 107 mmol/L) 104 98 CO2 (Enzymatic) (21 - 32 mmol/L) 25 25 BUN (7 - 18 mg/dL) 18 20 Creatinine (0.6 - 1.3 mg/dL) 1.1 1.2 Est GFR ( Amer) (mL/min) >60 >60 Est GFR (Non-Af Amer) (mL/min) >60 >60 Glucose (70 - 110 mg/dL) 99 103 Hemoglobin A1c % (4.5 - 6.2 %) 6.6 Lactic Acid (0.4 - 2.0 mmol/L) 0.8 Plasma Calcium (8.5 - 10.1 mg/dL) 8.2 8.4 Total Bilirubin (0.0 - 1.0 mg/dL) 0.8 AST (15 - 37 U/L) 21 ALT (12 - 78 U/L) 24 Alkaline Phosphatase (46 - 116 U/L) 76 Total Protein (6.4 - 8.2 g/dL) 7.1 Albumin (3.3 - 5.0 g/dL) 3.9 Amylase (25 - 115 U/L) 44 Lipase (73 - 393 U/L) 145 Coagulation INR (0.8 - 1.2) 0.9 Hematology WBC (4.5 - 11.5 K/uL) 7.0 8.2 RBC (4.50 - 5.90 M/uL) 4.52 4.60 Hgb (13.5 - 17.5 gm/dL) 13.0 13.4 Hct (41.0 - 53.0 %) 38.9 39.8 MCV (80 - 100 fL) 86 86 MCH (26 - 34 pg) 29 29 RDW (11.6 - 14.8 %) 13.2 13.5 Neut % (Auto) (50 - 75 %) 60.3 62.6 Lymph % (Auto) (25 - 40 %) 23.1 19.9 [place] % (Auto) (3 - 14 %) 10.6 11.6 Eos % (Auto) (0 - 4 %) 5.0 4.8 Baso % (Auto) (0 - 2 %) 1.0 1.1 Plt Count, EDTA (150 - 400 K/uL) 163 176 PUBS MCHC (31 - 37 g/dL) 34 34 01/03 2100 Urines Urine Color YELLOW Urine Appearance CLEAR Urine pH (5.0 - 8.0) 7.0 Ur Specific [place] (1.010 - 1.030) <= 1.005 Urine Protein (NEGATIVE) NEGATIVE Urine Ketones (NEGATIVE) NEGATIVE Urine Blood (NEGATIVE) TRACE-INTACT Urine Nitrite (NEGATIVE) NEGATIVE Urine Bilirubin (NEGATIVE) NEGATIVE Urine Urobilinogen (0.2 - 1.0 EU/dL) 0.2 Ur Leukocyte Esterase (NEGATIVE) TRACE Urine RBC (0 - 1 rbc/hpf) 0-1 Urine WBC (0 - 1 wbc/hpf) 3-5 Ur Epithelial Cells (0 - 5 EPI/hpf) NONE SEEN Urine Bacteria (NONE SEEN) NONE SEEN Urine Glucose (NEGATIVE) NEGATIVE Urine Comment CULTURE INDICATED Microbiology Date/Time Procedure - Status Source Growth 01/03 2100 Urine Culture - RECD URINE CC Assessment and Plan Problem List 1. Abdominal pain Plan -Patient presents with history of left-sided abdominal pain -Symptoms resolved -Abdominal films this a.m. suggestive of possible ileus but no other significant abnormalities -Follow per Dr. Bagley 2. Diabetes mellitus Status Chronic Onset Date Unknown Plan -Patient with history of type 2 diabetes mellitus -Currently on metformin -Insulin sliding scale until discharge then placed back on metformin 500 mg by mouth twice a day 3. Hypertension Status Chronic Onset Date Unknown Plan -Patient with history of hypertension -Continue outpatient medical regimen of lisinopril 40 mg by mouth daily, Lopressor 12.5 mg by mouth twice a day, terazosin 1 mg by mouth daily at bedtime , and Maxzide 25 1 by mouth daily. -Outpatient follow-up with PCP Current status: Good, improved Anticipated discharge date: Today Anticipated discharge placement: Home Patient care time: Time spent in chart review, patient interview, physical exam, CPOE, and care documentation: 25 minutes Visit to patient today: 2 Complexity of care: Moderate E&M Codes Rounding: Inpt-Moderate/[id number]
--- NOTE | 2017-01-04 10:33 | NUR ---
PT UP TO CHAIR, WRAPPED IN WARM BLANKETS. MAG CITRATE GIVEN PER MD. FAMILY IN ROOM AT BEDSIDE. EDUCATED REGARDING FALL RISK AND CALL LIGHT USE. WILL CONTINUE TO MONITOR.
[2017-01-04 12:03] VITALS: BP 116/54
[2017-01-04] MEDS ORDERED: ASPIRIN ADULT L81 M1 PO (12:23)
[2017-01-04] MEDS ORDERED: SIMVASTATIN40 MG (12:23)
[2017-01-04] MEDS ORDERED: ABILIFY5 MG PO (12:24)
--- NOTE | 2017-01-04 12:36 | NUR ---
PT SITTING UP IN CHAIR, DENIES DISCOMFORT/NAUSEA AT THIS TIME. NO BM OF YET. WILL CONTINUE TO MONITOR.
--- NOTE | 2017-01-04 13:13 | NUR ---
PT UP TO BR.
[2017-01-04] MEDS ORDERED: COLACE100 MG PO (13:34)
--- NOTE | 2017-01-04 13:41 | Provider's Discharge Care Plan ---
Problem, Goal, Plan Problem List 1. Abdominal pain Goals: Improve disease control, Prevent disease progress Instructions: Follow up as directed, Take meds as directed 2. Constipation Goals: Improve disease control, Prevent disease progress Instructions: Follow up as directed, Take meds as directed
--- NOTE | 2017-01-04 14:40 | Discharge Summary ---
Discharge Summary Report Admit Date 01/03/17 Discharge Date 01/04/17 Admission Diagnosis 1. Abdominal pain 2. Constipation 3. Hypertension 4. Diabetes mellitus Discharge Diagnosis 1. Abdominal pain 2. Constipation 3. Hypertension 4. Diabetes mellitus 5. UTI Brief History The patient is a 81-year-old white male with a significant past medical history of coronary artery disease status post CABG 3, bladder CA, diabetes mellitus type 2, hypertension, hyperlipidemia, who presented to [facility] emergency department on the day of admission secondary to complaints of left lower quadrant pain. 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 Secondary to the above, the patient was admitted by Michael Lora M.D. with consultation by the hospitalist service ( Lia Mitchell M.D.) for further evaluation and treatment For other history present illness, past medical history, family history, social history, review of systems, and admission physical examination please see the patient's history and physical examination by Dr. Michael Lora, hospitalist consultation by Lia Mitchell M.D. and ER visit note in the patient's medical record. Hospital Course The following problems and their management were noted during the patient's hospitalization: 1. Abdominal pain The patient was admitted with left lower quadrant abdominal pain. This resolved early in the patient's hospital course. Follow-up x-ray showed finding consistent with enteritis. The patient had no nausea or vomiting. He was felt to have mild constipation. He was treated with magnesium citrate with normal BM prior to discharge. It was Dr. Bagley's recommendations the patient be discharged home following treatment of his constipation. He was discharged on Colace 100 mg by mouth twice a day. Outpatient follow up with PCP. 2. Constipation See above. 3. Hypertension The patient has a long-standing history of hypertension. His blood pressure was well-controlled during his hospitalization. He was discharged on lisinopril 40 mg by mouth daily, Lopressor 12.5 mg by mouth twice a day, terazosin 1 mg by mouth daily at bedtime, and Maxzide 25 mg 1 by mouth daily. Patient discharged on low-salt diet. 4. Diabetes mellitus The patient has a long-standing history of diabetes mellitus. Blood sugar adequately controlled during his hospital stay. The patient was discharged on metformin 500 mg by mouth twice a day. 5. UTI The patient had mildly abnormal urinary sediment. No symptoms of UTI. Urine C& S pending. Hold antimicrobials until final urine C&S available. Patient will be contacted with urine C&S results. Lab/Imaging Laboratory Tests 01/04 01/04 01/03 01/03 2641 [id number] 8718 Chemistry Plasma Sodium (136 - 145 mmol/L) 139 135 Plasma Potassium (3.5 - 5.1 mmol/L) 3.9 3.5 Plasma Chloride (98 - 107 mmol/L) 104 98 CO2 (Enzymatic) (21 - 32 mmol/L) 25 25 BUN (7 - 18 mg/dL) 18 20 Creatinine (0.6 - 1.3 mg/dL) 1.1 1.2 Est GFR ( Amer) (mL/min) >60 >60 Est GFR (Non-Af Amer) (mL/min) >60 >60 Glucose (70 - 110 mg/dL) 99 103 Hemoglobin A1c % (4.5 - 6.2 %) 6.6 Lactic Acid (0.4 - 2.0 mmol/L) 0.8 Plasma Calcium (8.5 - 10.1 mg/dL) 8.2 8.4 Total Bilirubin (0.0 - 1.0 mg/dL) 0.8 AST (15 - 37 U/L) 21 ALT (12 - 78 U/L) 24 Alkaline Phosphatase (46 - 116 U/L) 76 Total Protein (6.4 - 8.2 g/dL) 7.1 Albumin (3.3 - 5.0 g/dL) 3.9 Amylase (25 - 115 U/L) 44 Lipase (73 - 393 U/L) 145 Coagulation INR (0.8 - 1.2) 0.9 Hematology WBC (4.5 - 11.5 K/uL) 7.0 8.2 RBC (4.50 - 5.90 M/uL) 4.52 4.60 Hgb (13.5 - 17.5 gm/dL) 13.0 13.4 Hct (41.0 - 53.0 %) 38.9 39.8 MCV (80 - 100 fL) 86 86 MCH (26 - 34 pg) 29 29 RDW (11.6 - 14.8 %) 13.2 13.5 Neut % (Auto) (50 - 75 %) 60.3 62.6 Lymph % (Auto) (25 - 40 %) 23.1 19.9 [place] % (Auto) (3 - 14 %) 10.6 11.6 Eos % (Auto) (0 - 4 %) 5.0 4.8 Baso % (Auto) (0 - 2 %) 1.0 1.1 Plt Count, EDTA (150 - 400 K/uL) 163 176 PUBS MCHC (31 - 37 g/dL) 34 34 01/03 2100 Urines Urine Color YELLOW Urine Appearance CLEAR Urine pH (5.0 - 8.0) 7.0 Ur Specific [place] (1.010 - 1.030) <= 1.005 Urine Protein (NEGATIVE) NEGATIVE Urine Ketones (NEGATIVE) NEGATIVE Urine Blood (NEGATIVE) TRACE-INTACT Urine Nitrite (NEGATIVE) NEGATIVE Urine Bilirubin (NEGATIVE) NEGATIVE Urine Urobilinogen (0.2 - 1.0 EU/dL) 0.2 Ur Leukocyte Esterase (NEGATIVE) TRACE Urine RBC (0 - 1 rbc/hpf) 0-1 Urine WBC (0 - 1 wbc/hpf) 3-5 Ur Epithelial Cells (0 - 5 EPI/hpf) NONE SEEN Urine Bacteria (NONE SEEN) NONE SEEN Urine Glucose (NEGATIVE) NEGATIVE Urine Comment CULTURE INDICATED Microbiology Date/Time Procedure - Status Source Growth 01/03 2100 Urine Culture - RES URINE CC Discharge Instructions/Meds For other recommendations regarding discharge diet, activity, followup, and discharge medications please see the patient's discharge instructions. Discharge condition: Good, improved Greater than 30 min. was spent in the patient's discharge preparation including discharge interview and physical examination, progress note, discharge instructions, and discharge summary The patient was interviewed and examined on the day of discharge.
== END 2017-01-04 16:00 | disposition home or self-care (01) ==
LOC: ED SRH 20:42 → TRANS SRH 23:41 → ACUTE2 SRH 23:41
PROVIDERS: ADMIT Surgery
DX: K52.9 Noninfective gastroenteritis and colitis, unspecified (principal); K59.00 Constipation, unspecified; E11.9 Type 2 diabetes mellitus without complications; Z79.84 Long term (current) use of oral hypoglycemic drugs; I25.10 Atherosclerotic heart disease of native coronary artery without angina pectoris; Z95.1 Presence of aortocoronary bypass graft
CPT/HCPCS: 29230; 29242; 85241; 90004; 90047; 90074; 90098; 90100; 90469; 91286; 92031; 92235; 92530; 94060; 95059